=== PATIENT | female | born 1990 | race Caucasian/White ===

== ENCOUNTER → 2016-11-09 | Day surgery (SDC) | payer OTHER ==
--- NOTE | 2016-11-08 14:36 | MH ---
cc: LASHONDA KELLY DATE OF ADMISSION: 11/09/2016 ADMITTING DIAGNOSIS Spontaneous , eight weeks gestation. HISTORY OF PRESENT ILLNESS The patient is a 26-year-old white female, para 1-0-0-1, with LMP of 09/04/2016, EDC of 06/11/2017. She returned for ultrasound on 11/03/2016 which showed an empty gestational sac measuring 7 weeks, yolk sac present with no pole. She is now admitted for D&C. PAST MEDICAL HISTORY PREVIOUS SURGERY 1. 2010 appendectomy. 2. 1988 inguinal hernia repair. 3. 2014 . MEDICATIONS Vitamins. ALLERGIES None. TRANSFUSIONS None. SOCIAL HISTORY She is . 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 Alcohol, tobacco and drugs are none. FAMILY HISTORY Noncontributory. PHYSICAL EXAMINATION GENERAL: A well-nourished, well-developed white female. VITAL SIGNS: Stable. HEENT: Normal. CHEST: Clear. HEART: Regular rate. BREASTS: Symmetrical. ABDOMEN: Benign. PELVIC: Normal external genitalia and BUS. Vagina is normal. Cervix is normal. Uterus is about eight weeks size. Adnexa nonpalpable. ASSESSMENT As above. PLAN She is now admitted for outpatient D&C. While in the office I explained the procedures, the risks, benefits and complications including but limited to , infection and bleeding. The patient elected to proceed. MD SEFERINO Fernandez/CHLOE /1:49 PM /2:22 PM
[~2016-11-09] VITALS: Ht 167.6 cm; Wt 95.4 kg
[~2016-11-09] MED LIST: *MEPERIDINE 25 MG INJ VIAL PERIprocedural Use ONLY ONE; ACETAMINOPHEN 1000 MG/100 ML VIAL IV SCH; CHLORHEXIDINE GLUCONATE 2 % 1 PACK (2 CLOTHS) TOPICAL PRN; DEXAMETHASONE SOD PHOS 4 MG/ML VIAL IV ONE; DO NOT ADM ANY ANTICOAGULANT DRUGS PRN; INSULIN HUMAN REGULAR 1,000 UNITS/10 ML VIAL SQ PRN; KETOROLAC TROMETHAMINE 30 MG/ML (IVP) VIAL IV PUSH ONE; LACTATED RINGER'S 1000 ML IV PRN; LIDOCAINE HCL 1% PF 5 ML AMPULE OTHER ONE; METOCLOPRAMIDE HCL 10 MG/2 ML VIAL IV PRN; METOPROLOL TARTRATE 25 MG TAB PO PRN; ONDANSETRON HCL 4 MG/2 ML VIAL IV PUSH ONE; OXYTOCIN 10 UNIT/ML AMP ONE; PHENYLEPH/NS 1000 MCG/10 ML SYR IV ONE; POVIDONE IODINE 5% (ANTISEPSIS KIT) 4 APPLICATIONS EACH NARE PRN; PREN29TA PO; PROPOFOL 200 MG/20 ML AMP IV ONE; SODIUM CHLORID 0.9% 500 ML IV PRN; ceFAZolin 1,000 MG/NS 100 ML IV SCH
--- NOTE | 2016-11-09 13:36 | MP ---
cc: LASHONDA KELLY DATE OF SURGERY 11/09/2016 PREOPERATIVE DIAGNOSIS Spontaneous 8 weeks gestation. POSTOPERATIVE DIAGNOSIS Spontaneous 8 weeks gestation. PROCEDURE Suction and sharp D&C. ANESTHESIA General LMA. ESTIMATED BLOOD LOSS FOR THE PROCEDURE About 100 cc. FLUIDS About 800 cc crystalloid. OBJECTIVE FINDINGS Following the induction of adequate general LMA anesthesia, the patient was prepped and draped supine on the operating table in dorsal lithotomy position in the usual sterile fashion with the bladder being drained via in and out catheterization. Examination under anesthesia revealed an 8-weeks sized uterus anterior. No adnexal masses. A heavy weighted speculum was placed in the posterior fornix of the vagina, the anterior lip of the cervix grasped with a single-tooth tenaculum. The cervix and uterus sounded to 9 cm. The cervix was then dilated to a #18 Hanks dilator. A #8 suction curet was passed to remove the POC-like material, followed by a small sharp curet to dislodge any adherent tissue. The suction curet was passed again to roll picker any loose tissue and debris. The cervical tenaculum sites were sutured with 3-0 chromic for hemostasis. The uterus was now noted to contract down to six weeks' size. All counts were correct. The patient's legs were taken down from the stirrups, she was awakened and taken to the recovery room in good condition. MD SEFERINO Fernandez/BEAR /1:12 PM /1:26 PM
[2016-11-09 15:40] VITALS: BP 104/52; PULSE 72; RESP 16; TEMP 98.1; O2SAT 100
== END | disposition home or self-care (01) ==
LOC: HSDC 10:37
PROVIDERS: ATTEND Obstetrics & Gynecology
DX: O03.9 Complete or unspecified spontaneous abortion without complication (principal)
CPT/HCPCS: 01965; 59820; 88305; J0131; J0690; J1100; J1885; J2175; J2370; J2405; J2590; J3010; J7120